=== PATIENT | female | born 1950 | race Caucasian/White ===

== ENCOUNTER 2016-07-10 14:27 | Outpatient (CLI) | payer MEDICARE, OTHER | END 2016-07-10 14:28 | disposition home or self-care (01) | DX: G47.30 Sleep apnea, unspecified (principal); G47.8 Other sleep disorders; G47.10 Hypersomnia, unspecified; R06.83 Snoring; G47.00 Insomnia, unspecified | CPT/HCPCS: 99203; G0463 ==

== ENCOUNTER 2018-02-19 13:04 | Outpatient (CLI) | payer MEDICARE, OTHER ==
--- NOTE | 2018-02-19 15:40 | Ultrasound Report ---
Reason: ABNORMAL LFT'S Procedure Date: 02/19/2018 Accession Number: [id number] / [id number] Procedure: US - Abdomen Limited CPT Code: FULL RESULT: EXAM: ABDOMEN ULTRASOUND LIMITED, RUQ EXAM DATE: 02/19/2018 01:46 PM. CLINICAL HISTORY: Abnormal LFTs. COMPARISON: None. TECHNIQUE: Real-time scanning was performed with static images obtained. FINDINGS: Liver: Liver echotexture is coarse and heterogeneous with geographic areas of increased echogenicity without differential flow on color Doppler. Right lobe of liver measures at least 14.2 cm. Main portal vein flow: Hepatopetal. Gallbladder: Normal. No stones, wall thickening, or sonographic Fay's sign. Biliary System: CBD measures 3 mm. No intrahepatic or extrahepatic ductal dilatation. Other: Right kidney measures up to 9.4 cm and demonstrates no mass or hydronephrosis. IMPRESSION: Markedly heterogeneous coarse echotexture with focal geographic regions of increased echogenicity. This is a nonspecific appearance suggestive of parenchymal disease possibly with focal fatty infiltration. If there is concern for hepatic malignancy, recommend CT with contrast. RADIA
== END 2018-02-19 13:05 | disposition home or self-care (01) ==
LOC: DI 13:04
PROVIDERS: ATTEND Internal Medicine Gastroenterology
DX: R94.5 Abnormal results of liver function studies (principal)
CPT/HCPCS: 76705

== ENCOUNTER 2018-10-09 13:38 | Outpatient (CLI) | payer MEDICARE, OTHER ==
--- NOTE | 2018-10-09 15:47 | CARDIAC PROCEDURE NOTE ---
DATE OF SERVICE: 10/09/2018 Physician: Danay Hernandez MD, [facility] INDICATIONS: Chest pain. CARDIAC RISK FACTORS 1. Advanced age. 2. Unknown history of hypertension. 3. Unknown history of cholesterol. DESCRIPTION OF PROCEDURE: After signing informed consent, patient underwent a Boogie-protocol stress test. No cardiac imaging was ordered with this test. RESTING HEART RATE: 85. PEAK HEART RATE: 132 (86% predicted maximum heart rate for age). RESTING BLOOD PRESSURE: 101/80. PEAK BLOOD PRESSURE: 170/75. Patient exercised for 6 minutes and 25 seconds on a Boogie-protocol treadmill stress test. She achieved a peak heart rate of 132 (86% PMHR) and 7.7 METS. Patient developed marked fatigue, reported her Jean Pierre scale as very difficult and reported moderate shortness of breath. Oxygen saturation was 98% at peak. She had no complaints of chest pain. The treadmill test was stopped because of achieving 85% predicted heart rate, and because of her complaints of significant fatigue and shortness of breath. RESTING EKG: Normal sinus rhythm, LAFB, poor R-wave progression. EKG AT PEAK: No new ST segment or T-wave changes. IMPRESSION 1. Abnormal resting EKG. 2. No ischemic changes at an adequate level of stress achieved on treadmill exercise. 3. Please note: the patient appears to have significant confusion. She did not remember to bring in her med list, did not remember being recently prescribed a thyroid medicine and another new medicine at bedtime and for unknown reason. She did not know her past medical history, and did not comply with the fasting recommendations pre-stress testing (she ate at a restaurant 2 hours prior). The patient also could not adapt to exercising on the treadmill. 4. This patient's coronary risk is LOW based on this exercise stress test, done without imaging. Consider repeat stress test using pharmaceutical stressor agent and nuclear myocardial perfusion imaging, if clinically indicated. TD: 10/09/2018 15:25 ANN
== END 2018-10-09 13:39 | disposition home or self-care (01) ==
LOC: DI 13:38
PROVIDERS: ATTEND Physician Assistant
DX: R07.9 Chest pain, unspecified (principal); R94.31 Abnormal electrocardiogram [ECG] [EKG]
CPT/HCPCS: 93016; 93017; 93018

== ENCOUNTER 2019-01-09 11:36 | Outpatient (CLI) | payer MEDICARE, OTHER ==
[2019-01-09] MEDS ORDERED: SINCALIDE 5 MCG VIAL ONE (13:06)
[2019-01-09] MEDS ORDERED: SINCALIDE 1.2 MCG in SODIUM CHLORIDE 0.9% 50 ML IV ONE (14:57)
--- NOTE | 2019-01-09 17:03 | Nuclear Medicine Report ---
Reason: FATIGUE Procedure Date: 01/09/2019 Accession Number: [id number] / [id number] Procedure: NM - Hepatobiliary HIDA w/ Rx CPT Code: FULL RESULT: EXAM: HEPATOBILIARY SCAN WITH CCK/KINEVAC ADMINISTRATION EXAM DATE: 01/09/2019 02:54 PM. CLINICAL HISTORY: FATIGUE. COMPARISON: ABDOMEN LIMITED 02/19/2018 1:14 PM. TECHNIQUE: Following the intravenous administration of 5.4 mCi of Tc99m Mebrofenin, a hepatobiliary scan was done centered on the liver and gallbladder in multiple sequential images and projections. Following the intravenous administration of 1.2 mcg of CCK/ Kinevac over the course of approximately 60 minutes, dynamic imaging was done and the gallbladder ejection fraction was calculated. FINDINGS: Normal extraction of tracer from the blood pool indicating normal hepatocellular function. The liver size and shape is grossly within normal limits. There is activity visualized within the bile ducts, gallbladder, and small bowel during the first hour. With CCK administration, the gallbladder demonstrates an effective contraction. The gallbladder ejection fraction is calculated to be 85%, well above the lower limit of normal of 38% for a 60-minute injection. The patient did not report symptoms after CCK administration. No evidence of enteric reflux into the stomach. No significant collection of tracer remaining in the common bile duct by the end of the study. IMPRESSION: 1. Patent cystic duct. 2. Patent common bile duct. 3. Negative for acute or chronic cholecystitis. 4. No enterogastric bile reflux. 5. Gallbladder ejection fraction of 85%. RADIA
== END 2019-01-09 11:37 | disposition home or self-care (01) ==
LOC: DI 11:36
PROVIDERS: ATTEND Physician Assistant Medical
DX: R53.83 Other fatigue (principal)
CPT/HCPCS: 78227; J7040

== ENCOUNTER 2019-02-16 17:49 | Emergency (ER) | payer MEDICARE, OTHER ==
[2019-02-16] MEDS ORDERED: MORPHINE 10 MG/ML VIAL IVP STA (17:56)
[2019-02-16] MEDS ORDERED: MORPHINE 10 MG/ML VIAL ONE (17:56)
[2019-02-16] MEDS ORDERED: ONDANSETRON 4 MG/2 ML VIAL ONE (17:56)
[2019-02-16] MEDS ORDERED: ONDANSETRON 4 MG/2 ML VIAL IVP STA (17:56)
--- NOTE | 2019-02-16 17:58 | ED Physician Documentation ---
PD HPI LOWER EXT INJURY - Stated complaint Stated Complaint: LT ANKLE INJURY - Chief complaint Chief Complaint: Ext Problem - History obtained from History obtained from: Patient, Family - History of Present Illness PD HPI LOW EXT INJURY LOCATION: Left (She is out feeding the horses after going to a alliance party where she did some drinking. She slipped in the mud and has an isolated Left ankle injury and she is unable to walk or bear weight.) Review of Systems Ten Systems: 10 systems reviewed and negative Cardiac: reports: Reviewed and negative Respiratory: reports: Reviewed and negative PD PAST MEDICAL HISTORY - Past Surgical History Past Surgical History: Yes HEENT: Tonsil/Adenoidectomy - Present Medications Home Medications: Ambulatory Orders Medication Instructions Recorded Confirmed Levothyroxine [Synthroid] 137 mcg PO DAILY 04/03/15 04/03/15 Hydrocodone/Acetaminophen 1 - 2 each PO Q6H PRN #14 tablet 02/16/19 [Hydrocodon-Acetaminophen 5-325] Knee Scooter 1 unit TD ONCE #1 02/16/19 - Allergies Allergies/Adverse Reactions: Allergies Allergy/AdvReac Type Severity Reaction Status Date / Time No Known Drug Allergies Allergy Verified 02/16/19 17:57 - Social History Does the pt smoke?: No Smoking Status: Never smoker Does the pt drink ETOH?: Yes Does the pt have substance abuse?: No PD ED PE NORMAL - Vitals Vital signs reviewed: Yes - General General: Alert and oriented X 3, Other (She smells of alcohol, slightly histrionic) - HEENT HEENT: PERRL, EOMI - Neck Neck: Supple, no meningeal sign, No bony TTP - Cardiac Cardiac: RRR, No murmur - Respiratory Respiratory: No respiratory distress, Clear bilaterally - Abdomen Abdomen: Normal bowel sounds, Soft, Non tender - Back Back: No CVA TTP, No spinal TTP - Derm Derm: Normal color, Warm and dry - Extremities Extremities: Other (On initial evaluation she has an obviously deformed left ankle, we are unable to get her pants or shoe off on initial evaluation until she has some pain medication.) - Neuro Neuro: Alert and oriented X 3, Normal speech Results - Vitals Vitals: Vital Signs - 24 hr 02/16/19 02/16/19 02/16/19 17:54 18:24 18:37 Temperature 36.6 C Heart Rate 98 95 Respiratory 22 16 18 Rate Blood Pressure 142/125 H 128/109 H 135/83 H O2 Saturation 96 98 100 02/16/19 02/16/19 18:44 19:00 Temperature Heart Rate 87 Respiratory Rate Blood Pressure O2 Saturation 99 100 Oxygen O2 Source Room air - Labs Labs: Laboratory Tests 02/16/19 02/16/19 02/16/19 18:35 18:35 18:35 WBC 6.3 RBC 4.18 L Hgb 14.5 Hct 43.3 MCV 103.6 H MCH 34.7 H MCHC 33.5 RDW 11.9 L Plt Count 259 MPV 9.7 Neut # (Auto) 3.4 Lymph # (Auto) 2.2 [place] # (Auto) 0.5 Eos # (Auto) 0.1 Baso # (Auto) 0.0 Absolute Nucleated RBC 0.00 Nucleated RBC % 0.0 PT 10.8 INR 0.9 Sodium 141 Potassium 3.6 Chloride 106 Carbon Dioxide 24 Anion Gap 11.0 BUN 5 L Creatinine 0.6 Estimated GFR (MDRD) 99 Glucose 104 H Calcium 9.0 Total Bilirubin 0.5 AST 64 H ALT 48 Alkaline Phosphatase 80 Total Protein 6.8 Albumin 3.7 Globulin 3.1 Albumin/Globulin Ratio 1.2 Lipase 52 H Ethyl Alcohol 212.3 - Rads (name of study) LLE XRs Radiology: EMP read contemporaneously Procedures - Splint (location) LLE Splint applied by: Physician Type of splint: Fiberglass, Long leg, Posterior, Stirrup Other: Patient tolerated well, No complications, Neurovascular intact - Reduction Body part reduced: Left, Ankle Fracture or dislocation: Fracture dislocation Anesthesia: Conscious sedation - Procedural sedation Sedation prep: Informed consent, Time out completed Sedation medications: morphine (10mg IVP), ketamine (100mg IVP) Patient status during sedation: Responds to tactile, Maintained airway Sedation recovery: Recovered uneventfully Time in sedation (Minutes): 15 PD MEDICAL DECISION MAKING - ED course ED course: 68-year-old woman attended to immediately upon arrival. She has an obviously deformed ankle, she was administered morphine which did not help much and this was followed by ketamine. After which there was some respiratory depression and the opportunity was taken to reduce the ankle and splint her. Unfortunately there is no orthopedist director distribution here [facility] was called for potential transfer at 6:30 PM. Spoke by phone with Dr. Mikey Nathe, he viewed the x-rays. Feels this can be followed up outpatient. Departure - Departure Disposition: 01 Home, Self Care Clinical Impression: Fall from ground level Trimalleolar fracture of ankle, closed Qualifiers: Encounter type: initial encounter Laterality: left Qualified Code(s): S82.852A - Displaced trimalleolar fracture of left lower leg, initial encounter for closed fracture Alcohol intoxication Qualifiers: Complication of substance-induced condition: uncomplicated Qualified Code(s): F10.920 - Alcohol use, unspecified with intoxication, uncomplicated Condition: Stable Record reviewed to determine appropriate education?: Yes Instructions: ED Splint Care Fiberglass, ED Fx Lower Ext Prescriptions: Hydrocodone/Acetaminophen [Hydrocodon-Acetaminophen 5-325] 1 - 2 each PO Q6H PRN #14 tablet PRN Reason: pain Knee Scooter 1 unit TD ONCE #1 Comments: Do not walk or bear weight on the left leg, keep the splint on and dry. This evening I spoke with Dr. Mikey Quezada, you can follow-up with him. The phone number is [phone]. Keep it elevated as much as possible. Avoid drinking alcohol. You were quite drunk tonight.
[2019-02-16] MEDS ORDERED: KETAMINE 500 MG/10 ML VIAL IVP STA (18:07)
[2019-02-16 18:38] VITALS: BP 135/83
[2019-02-16 18:42] LABS: BASOPHILS % (AUTO) 0.5 %; EOSINOPHILS # (AUTO) 0.1 10^3/uL (0.0-0.7); EOSINOPHILS % (AUTO) 1.9 %; HGB - HEMOGLOBIN 14.5 g/dL (12.0-16.0); LYMPHOCYTES # (AUTO) 2.2 10^3/uL (1.5-3.5); LYMPHOCYTES % (AUTO) 34.4 %; MEAN CORPUSCULAR HEMOGLOBIN 34.7 pg (27.0-31.0); MEAN CORPUSCULAR HGB CONC 33.5 g/dL (32.0-36.0); MEAN CORPUSCULAR VOLUME 103.6 fL (81.0-99.0); MEAN PLATELET VOLUME 9.7 fL (7.9-10.8); MONOCYTES # (AUTO) 0.5 10^3/uL (0.0-1.0); MONOCYTES % (AUTO) 8.3 %; NEUTROPHILS # (AUTO) 3.4 10^3/uL (1.5-6.6); NEUTROPHILS % (AUTO) 54.7 %; PLT - PLATELET COUNT 259 10^3/uL (130-450); RED BLOOD COUNT 4.18 10^6/uL (4.20-5.40); RED CELL DISTRIBUTION WIDTH 11.9 % (12.0-15.0); WHITE BLOOD COUNT 6.3 x10^3/uL (4.8-10.8)
[2019-02-16 18:47] LABS: INR 0.9 (0.8-1.2); PT - PROTHROMBIN TIME 10.8 secs (9.9-12.6)
--- NOTE | 2019-02-16 18:49 | XRAY Report ---
Reason: leg inj Procedure Date: 02/16/2019 Accession Number: [id number] / [id number] Procedure: XR - Ankle 3 View LT CPT Code: Final Report FULL RESULT: EXAM: LEFT ANKLE RADIOGRAPHY EXAM DATE: 02/16/2019 06:32 PM. CLINICAL HISTORY: Slipped feeding horses. Pain and deformity. COMPARISON: None. TECHNIQUE: 3 views. FINDINGS: Bones: Displaced transverse medial malleolar fracture, oblique lateral malleolar fracture, with no other fractures identified. Joints: The tibial and fibular shafts are displaced medially and anteriorly in relation to the talus. Soft Tissues: Associated soft tissue swelling. IMPRESSION: Bimalleolar fracture/dislocation, Yogi GUIDO
--- NOTE | 2019-02-16 18:51 | XRAY Report ---
Reason: leg inj Procedure Date: 02/16/2019 Accession Number: [id number] / [id number] Procedure: XR - Tib/Fib LT CPT Code: Final Report FULL RESULT: EXAM: LEFT TIBIA/FIBULA RADIOGRAPHY EXAM DATE: 02/16/2019 06:32 PM. CLINICAL HISTORY: Post reduction. COMPARISON: Earlier today. TECHNIQUE: 2 views. FINDINGS: Films through cast demonstrate restorationism of the ankle joint, with mildly displaced trimalleolar fractures. No other bony abnormalities. IMPRESSION: Mildly displaced trimalleolar fractures, with improved alignment postreduction, and with restorationism of the ankle mortise. RADIA
[2019-02-16 18:58] LABS: ALBUMIN 3.7 g/dL (3.2-5.5); ALBUMIN/GLOBULIN RATIO 1.2 (1.0-2.2); BILIRUBIN,TOTAL 0.5 mg/dL (0.2-1.0); CREATININE 0.6 mg/dL (0.4-1.0); TOTAL PROTEIN 6.8 g/dL (6.7-8.2)
--- NOTE | 2019-02-16 18:59 | XRAY Report ---
Reason: ankle fracture, post reduction Procedure Date: 02/16/2019 Accession Number: [id number] / [id number] Procedure: XR - Ankle 2 View LT CPT Code: Final Report FULL RESULT: EXAM: LEFT ANKLE RADIOGRAPHY EXAM DATE: 02/16/2019 06:34 PM. CLINICAL HISTORY: Ankle fracture, post reduction. COMPARISON: ANKLE 3 VIEW LT 02/16/2019 5:53 PM. TECHNIQUE: 1 views. FINDINGS: There is interval reduction of the fracture dislocation involving the left ankle. On this single AP view, distal fibular fracture is subtle as well as medial malleolus fracture. Cast limits fine detail. There is normal alignment at the ankle mortise. IMPRESSION: Interval reduction in fracture dislocation at the left ankle. RADIA
[2019-02-16] MEDS ORDERED: HYDROcod/ACET 5/325 Prepack 4 PO STA (19:22)
== END 2019-02-16 19:59 | disposition home or self-care (01) ==
LOC: ED 17:49
DX: S82.852A Displaced trimalleolar fracture of left lower leg, initial encounter for closed fracture (principal); W01.0XXA Fall on same level from slipping, tripping and stumbling without subsequent striking against object, initial encounter; Y93.K9 Activity, other involving animal care; F10.920 Alcohol use, unspecified with intoxication, uncomplicated
CPT/HCPCS: 27818; 36415; 80053; 80320; 83690; 85025; 85610; 99152; 99283; 99284

== ENCOUNTER 2019-07-23 07:00 | Outpatient (CLI) | payer MEDICARE, OTHER | END 2019-07-23 23:59 | disposition home or self-care (01) | LOC: LAB.WCP 07:00 | PROVIDERS: ATTEND Physician Assistant Medical | DX: E03.9 Hypothyroidism, unspecified (principal) | CPT/HCPCS: 36415; 84443 ==

== ENCOUNTER 2021-05-24 11:29 | Outpatient (CLI) | payer MEDICARE, OTHER ==
--- NOTE | 2021-05-25 07:03 | Mammography Report ---
BILATERAL DIGITAL SCREENING MAMMOGRAM 3D/2D: 05/24/2021 CLINICAL: Routine screening. Comparison is made to exams dated: 10/14/2015 mammogram and 05/10/2011 mammogram - [facility]. The tissue of both breasts is predominantly fatty. There are benign calcifications in the left breast. No significant masses, calcifications, or other findings are seen in either breast. There has been no significant interval change. IMPRESSION: BENIGN There is no mammographic evidence of malignancy. A 1 year screening mammogram is recommended. This exam was interpreted at Station ID: [id number]. NOTE: For mammograms, a report in lay terms will be sent to the patient. Approximately 15% of breast malignancies will not be visualized mammographically. In the management of a palpable breast mass, a negative mammogram must not discourage biopsy of a clinically suspicious lesion. Electronically Signed By: Rex San acr/penrad:05/24/2021 12:45:53 ACR BI-RADS Category 2: Benign Finding(s) 3342F PARENCHYMAL PATTERN: (F) - The breast(s) demonstrate(s) diffuse fatty replacement. BI-RADS CATEGORY: (2) - 2 RECOMMENDATION: (ANNUAL) - Recommend routine annual screening mammography. [id number] 1 year screening LATERALITY: (B)
== END 2021-05-24 11:30 | disposition home or self-care (01) ==
LOC: DI.N 11:29
DX: Z12.31 Encounter for screening mammogram for malignant neoplasm of breast (principal)

== ENCOUNTER 2021-07-28 08:00 | Outpatient (CLI) | payer MEDICARE, OTHER ==
[2021-07-28 17:57] LABS: ALBUMIN/GLOBULIN RATIO 1.5 (1.0-2.2); BILIRUBIN,TOTAL 1.1 mg/dL (0.2-1.0); CALCIUM 9.4 mg/dL (8.5-10.3); CREATININE 0.5 mg/dL (0.4-1.0); TOTAL PROTEIN 6.7 g/dL (6.7-8.2)
[2021-07-28 17:59] LABS: BASOPHILS % (AUTO) 0.7 %; EOSINOPHILS # (AUTO) 0.1 10^3/uL (0.0-0.7); EOSINOPHILS % (AUTO) 1.8 %; HGB - HEMOGLOBIN 15.9 g/dL (12.0-16.0); LYMPHOCYTES # (AUTO) 1.2 10^3/uL (1.5-3.5); LYMPHOCYTES % (AUTO) 27.5 %; MEAN CORPUSCULAR HEMOGLOBIN 36.5 pg (27.0-31.0); MEAN CORPUSCULAR HGB CONC 34.6 g/dL (32.0-36.0); MEAN CORPUSCULAR VOLUME 105.5 fL (81.0-99.0); MEAN PLATELET VOLUME 10.3 fL (7.9-10.8); MONOCYTES # (AUTO) 0.4 10^3/uL (0.0-1.0); MONOCYTES % (AUTO) 9.6 %; NEUTROPHILS # (AUTO) 2.6 10^3/uL (1.5-6.6); NEUTROPHILS % (AUTO) 59.9 %; PLT - PLATELET COUNT 224 10^3/uL (130-450); RED BLOOD COUNT 4.36 10^6/uL (4.20-5.40); RED CELL DISTRIBUTION WIDTH 12.2 % (12.0-15.0); WHITE BLOOD COUNT 4.4 x10^3/uL (4.8-10.8)
[2021-07-28 18:11] LABS: THYROID STIMULATING HORMONE 9.79 uIU/mL (0.34-5.60)
[2021-07-28 18:45] LABS: FREE T4 (FREE THYROXINE) 0.57 ng/dL (0.58-1.64)
[2021-07-28 21:08] LABS: ESTIMATED AVERAGE GLUCOSE 100 mg/dL (70-100); HEMOGLOBIN A1c% 5.1 % (4.27-6.07)
== END 2021-07-28 08:01 | disposition home or self-care (01) ==
LOC: LAB.N 08:00
PROVIDERS: ATTEND Registered Nurse
DX: R68.89 Other general symptoms and signs (principal)
CPT/HCPCS: 36415; 80053; 83036; 84439; 84443; 85025

== ENCOUNTER 2022-04-12 08:00 | Outpatient (CLI) | payer MEDICARE, OTHER ==
[2022-04-12 18:05] LABS: BASOPHILS % (AUTO) 0.5 %; EOSINOPHILS % (AUTO) 0.5 %; HCT - HEMATOCRIT 49.8 % (37.0-47.0); HGB - HEMOGLOBIN 17.3 g/dL (12.0-16.0); LYMPHOCYTES # (AUTO) 0.9 10^3/uL (1.5-3.5); LYMPHOCYTES % (AUTO) 14.9 %; MEAN CORPUSCULAR HEMOGLOBIN 37.4 pg (27.0-31.0); MEAN CORPUSCULAR HGB CONC 34.7 g/dL (32.0-36.0); MEAN CORPUSCULAR VOLUME 107.8 fL (81.0-99.0); MEAN PLATELET VOLUME 11.2 fL (7.9-10.8); MONOCYTES # (AUTO) 0.7 10^3/uL (0.0-1.0); MONOCYTES % (AUTO) 11.8 %; NEUTROPHILS # (AUTO) 4.2 10^3/uL (1.5-6.6); NEUTROPHILS % (AUTO) 71.8 %; PLT - PLATELET COUNT 262 10^3/uL (130-450); RED BLOOD COUNT 4.62 10^6/uL (4.20-5.40); WHITE BLOOD COUNT 5.8 x10^3/uL (4.8-10.8)
[2022-04-12 18:18] LABS: ALBUMIN 3.5 g/dL (3.2-5.5); ALBUMIN/GLOBULIN RATIO 1.1 (1.0-2.2); BILIRUBIN,TOTAL 1.5 mg/dL (0.2-1.0); CALCIUM 9.8 mg/dL (8.5-10.3); CREATININE 0.6 mg/dL (0.4-1.0); POTASSIUM 3.7 mmol/L (3.5-5.0); TOTAL PROTEIN 6.6 g/dL (6.7-8.2)
[2022-04-12 18:31] LABS: THYROID STIMULATING HORMONE 12.58 uIU/mL (0.34-5.60)
[2022-04-12 19:52] LABS: FREE T4 (FREE THYROXINE) 0.66 ng/dL (0.58-1.64)
== END 2022-04-12 23:59 | disposition home or self-care (01) ==
LOC: LAB.N 08:00
PROVIDERS: ATTEND Nurse Practitioner Family
DX: E03.9 Hypothyroidism, unspecified (principal); R68.89 Other general symptoms and signs
CPT/HCPCS: 36415; 80053; 84439; 84443; 85025

== ENCOUNTER 2022-06-09 10:59 | Outpatient (CLI) | payer MEDICARE, OTHER ==
[2022-06-09 17:46] LABS: BASOPHILS % (AUTO) 0.6 %; EOSINOPHILS # (AUTO) 0.1 10^3/uL (0.0-0.7); EOSINOPHILS % (AUTO) 2.6 %; HCT - HEMATOCRIT 45.1 % (37.0-47.0); HGB - HEMOGLOBIN 15.7 g/dL (12.0-16.0); LYMPHOCYTES # (AUTO) 1.1 10^3/uL (1.5-3.5); LYMPHOCYTES % (AUTO) 22.2 %; MEAN CORPUSCULAR HEMOGLOBIN 37.2 pg (27.0-31.0); MEAN CORPUSCULAR HGB CONC 34.8 g/dL (32.0-36.0); MEAN CORPUSCULAR VOLUME 106.9 fL (81.0-99.0); MEAN PLATELET VOLUME 11.3 fL (7.9-10.8); MONOCYTES # (AUTO) 0.5 10^3/uL (0.0-1.0); MONOCYTES % (AUTO) 10.2 %; NEUTROPHILS # (AUTO) 3.1 10^3/uL (1.5-6.6); NEUTROPHILS % (AUTO) 63.2 %; PLT - PLATELET COUNT 226 10^3/uL (130-450); RED BLOOD COUNT 4.22 10^6/uL (4.20-5.40); RED CELL DISTRIBUTION WIDTH 12.6 % (12.0-15.0); WHITE BLOOD COUNT 4.9 x10^3/uL (4.8-10.8)
[2022-06-09 18:02] LABS: THYROID STIMULATING HORMONE 10.28 uIU/mL (0.34-5.60)
[2022-06-09 18:04] LABS: ALBUMIN 3.3 g/dL (3.2-5.5); ALBUMIN/GLOBULIN RATIO 1.1 (1.0-2.2); ALKALINE PHOSPHATASE 112 IU/L (42-121); ALT ALANINE AMINOTRANSFERASE 68 IU/L (10-60); AST ASPARTATE AMINOTRANSFERASE 107 IU/L (10-42); BILIRUBIN,TOTAL 1.2 mg/dL (0.2-1.0); BUN - BLOOD UREA NITROGEN < 5 mg/dL (6-20); CALCIUM 9.5 mg/dL (8.5-10.3); CARBON DIOXIDE - CO2 25 mmol/L (21-32); CHLORIDE 102 mmol/L (101-111); CREATININE 0.6 mg/dL (0.4-1.0); GAMMA GLUTAMYL TRANSPEPTIDASE 222 IU/L (8-38); GFR - MDRD 98 (>89); GLUCOSE 82 mg/dL (70-100); POTASSIUM 3.5 mmol/L (3.5-5.0); SODIUM 140 mmol/L (135-145); TOTAL PROTEIN 6.3 g/dL (6.7-8.2)
[2022-06-09 18:33] LABS: INR 0.9 (0.8-1.2); PT - PROTHROMBIN TIME 10.6 secs (9.9-12.6)
[2022-06-09 18:45] LABS: FREE T4 (FREE THYROXINE) 0.71 ng/dL (0.58-1.64)
[2022-06-10 08:09] LABS: HBsAG SCREEN Negative (Negative)
[2022-06-12 07:08] LABS: HCV AB Non Reactive (Non Reactive)
== END 2022-06-09 11:00 | disposition home or self-care (01) ==
LOC: LAB.N 10:59
PROVIDERS: ATTEND Nurse Practitioner Family
DX: R79.89 Other specified abnormal findings of blood chemistry (principal); E03.9 Hypothyroidism, unspecified; F10.90 Alcohol use, unspecified, uncomplicated
CPT/HCPCS: 36415; 80053; 82977; 84439; 84443; 85025; 85610; 86704; 86803; 87340

== ENCOUNTER 2022-07-11 14:26 | Outpatient (CLI) | payer MEDICARE, OTHER ==
--- NOTE | 2022-07-11 17:03 | Ultrasound Report ---
PROCEDURE: Abdomen Complete INDICATIONS: ABN LIVER FUNCTIONS TECHNIQUE: Real-time scanning was performed of the abdominal and retroperitoneal organs, with image documentatio n. COMPARISON: None. FINDINGS: Liver: Liver is normal in size. Increased liver parenchymal echotexture is seen, no discrete hepatic lesion. Gallbladder: Unremarkable. Biliary ducts: Intrahepatic bile ducts are non-dilated. Extrahepatic bile duct caliber measures 6.2 mm. Normal is 6-7 mm or less in diameter, or 10 mm or less post-cholecystectomy. Pancreas: Hypoechoic area is noted involving body of pancreas measures approximately 1.8 x 0.9 x 1.2 cm in size. No gross internal vascularity is seen. Spleen: Spleen is normal in size and homogeneous in echotexture. Kidneys: Kidneys are normal in size and echotexture. Right kidney measures 9.8 cm long; left kidney measures 9.8 cm long. No hydronephrosis or nephrolithiasis. Left parapelvic renal cysts are seen an d measures up to 1.4 x 0.9 x 0.8 cm in size. No solid masses. No complex renal cystic lesions which r equire follow-up. Aorta: Visualized aorta is normal in caliber at less than 3 cm. Iliacs: Proximal common iliac arteries are normal in caliber at less than 2.5 cm. IVC: Intrahepatic inferior vena cava is patent. Miscellaneous: No free abdominal fluid. IMPRESSION: 1. Hepatic steatosis, no discrete hepatic lesion. 2. Ill-defined hypoechoic area involving body of pancreas and measures 1.8 x 0.9 x 1.2 cm in size. Fi nding could represent IPMN. Neoplastic process of pancreas cannot be excluded. This can be further ev aluated with dedicated MRI of abdomen without and with contrast. 3. No biliary ductal dilatation. Normal-appearing gallbladder. 4. Left peripelvic renal cysts as above. No hydronephrosis. Reviewed by: Ridge Carlton MD on 07/11/2022 5:01 PM PDT Approved by: Ridge Carlton MD on 07/11/2022 5:01 PM PDT Station ID: [id number]
== END 2022-07-11 14:27 | disposition home or self-care (01) ==
LOC: DI 14:26
PROVIDERS: ATTEND Family Medicine
DX: R94.5 Abnormal results of liver function studies (principal); K76.0 Fatty (change of) liver, not elsewhere classified; R93.5 Abnormal findings on diagnostic imaging of other abdominal regions, including retroperitoneum; N28.1 Cyst of kidney, acquired

== ENCOUNTER 2022-07-22 08:52 | Outpatient (CLI) | payer MEDICARE, OTHER ==
[~2022-07-22 08:52] MED LIST: GADOBUTROL 7.5 MMOL/7.5 ML VIAL ONE
[2022-07-22 09:12] LABS: CREATININE 0.5 mg/dL (0.4-1.0)
[2022-07-22] MEDS ORDERED: GADOBUTROL 7.5 MMOL/7.5 ML VIAL IVP ONE (11:10)
--- NOTE | 2022-07-24 09:17 | MRI Report ---
PROCEDURE: ABDOMEN W/WO INDICATIONS: MASS OF PANCREAS CONTRAST: GADAVIST 5.1 ML TECHNIQUE: Coronal ultra fast SE, axial 2D spoiled GE in- and [id number]; axial breath-hold T2 fast SE. Dynam ic axial ultra fast GE during the administration of contrast; post-contrast coronal ultra fast GE or 2D spoiled GE with fat saturation from the hepatic dome to the iliac crests. Optional diffusion weig hted imaging and ADC may be performed. COMPARISON: Ultrasound 07/11/2022 FINDINGS: Image quality: Excellent. Lung bases: No basal pleural effusions. Heart size is normal. Solid organs: Clinically significant hepatic steatosis (14% calculated). Along the posterior margin o f the right hepatic lobe, there are a few T2 hyperintense cystic lesions without suspicious features, most consistent with benign cysts. Additionally, there is a focus of microhemorrhage with rim enhanc ement measuring 9 mm in segment 7 (series 11, image 31). Gallbladder sludge without wall thickening. No adrenal nodules. Spleen is within normal limits. No solid renal masses or hydronephrosis. Relative ly homogeneous T1 hyperintense signal throughout the pancreatic parenchyma. No pancreatic ductal dila tion. No persistent mass. Nodes and vessels: No retroperitoneal or mesenteric adenopathy by size criteria. Aorta and inferior vena cava are normal in size. Bowel and peritoneum: Unenhanced bowel loops are normal in caliber. No free fluid. Bones and soft tissues: No ventral hernias. Bone marrow is normal in overall signal. IMPRESSION: Clinically significant hepatic steatosis, which may place this patient at risk for developing hepatic fibrosis. No definite pancreatic mass. The pancreatic duct dilation. See follow-up recommendations below. Focus of microhemorrhage in segment 7 of the liver, probably representing a sequela of prior trauma. Presence of rim enhancement can also indicate malignancy. Consider 3-6 month follow-up with MRI. Reviewed by: Richie Gilbert on 07/24/2022 9:15 AM PDT Approved by: Richie Gilbert on 07/24/2022 9:15 AM PDT Station ID: [id number]
== END 2022-07-22 08:53 | disposition home or self-care (01) ==
LOC: LAB 08:52
PROVIDERS: ATTEND Family Medicine
DX: K86.89 Other specified diseases of pancreas (principal); K76.0 Fatty (change of) liver, not elsewhere classified; K76.89 Other specified diseases of liver
CPT/HCPCS: 36415; 74183; 82565; A9585

== ENCOUNTER 2022-08-24 09:33 | Outpatient (CLI) | payer MEDICARE, OTHER ==
--- NOTE | 2022-08-24 11:51 | XRAY Report ---
PROCEDURE: Lumbar Spine Complete INDICATIONS: LUMBAGO TECHNIQUE: 5 views of the lumbar spine were acquired. COMPARISON: None. FINDINGS: Bones: 5 [id number] vertebrae are present. There is levocurvature of the upper lumbar spine. N o acute vertebral body compression fractures. Severe multilevel lumbar spondylosis with moderate deg enerative endplate changes, disc height loss, and prominent endplate osteophytes. Moderate lumbar fac et arthropathy most pronounced in the mid and lower lumbar spine. No suspicious bony lesions. No fin dings to suggest pars defects. Soft tissues: Overlying bowel gas pattern is normal. No suspicious soft tissue calcifications. IMPRESSION: Lumbar spine without acute fracture. Severe multilevel lumbar spondylosis. Reviewed by: Contreras Gibbons MD on 08/24/2022 11:50 AM PDT Approved by: Contreras Gibbons MD on 08/24/2022 11:50 AM PDT Station ID: [id number]
--- NOTE | 2022-08-24 11:53 | XRAY Report ---
PROCEDURE: Pelvis 3 View INDICATIONS: LOOKING FOR DETAIL R ILIUM/ ILIAC CREST PAIN TECHNIQUE: 3 view(s) of the pelvis acquired. COMPARISON: Lumbar spine from earlier same day. FINDINGS: Bones: No fractures or dislocations. No suspicious bony lesions. Visualized iliac bones appear unre markable bilaterally. Severe lower lumbar spondylosis. Mild degenerative changes of the bilateral hip s. Chronic ossification noted over the superolateral right acetabular rim. Soft tissues: Visualized bowel gas pattern is normal. No suspicious soft tissue calcifications. IMPRESSION: No acute bony abnormality. Severe lower lumbar spondylosis. Mild bilateral degenerative change more pronounced on the right. Reviewed by: Contreras Gibbons MD on 08/24/2022 11:51 AM PDT Approved by: Contreras Gibbons MD on 08/24/2022 11:51 AM PDT Station ID: [id number]
--- NOTE | 2022-08-24 11:54 | XRAY Report ---
PROCEDURE: Sacrum/Coccyx INDICATIONS: LUMBAGO TECHNIQUE: 3 views of the sacrum and coccyx acquired. COMPARISON: Lumbar spine and pelvic series from earlier same day FINDINGS: Bones: No acute fractures or dislocations. No suspicious bony lesions. Lower lumbar spondylosis. B ilateral hip degenerative change. Soft tissues: Visualized bowel gas pattern is normal. No suspicious soft tissue densities. IMPRESSION: Sacrum/coccyx without acute osseous abnormalities. Lower lumbar spondylosis and bilateral hip degenerative change. Reviewed by: Contreras Gibbons MD on 08/24/2022 11:52 AM PDT Approved by: Contreras Gibbons MD on 08/24/2022 11:52 AM PDT Station ID: [id number]
== END 2022-08-24 09:34 | disposition home or self-care (01) ==
LOC: DI.N 09:33
PROVIDERS: ATTEND Nurse Practitioner Family
DX: M47.816 Spondylosis without myelopathy or radiculopathy, lumbar region (principal); M16.0 Bilateral primary osteoarthritis of hip

== ENCOUNTER 2022-09-21 15:31 | Outpatient (CLI) | payer MEDICARE, OTHER ==
[2022-09-21 15:58] LABS: CREATININE 0.4 mg/dL (0.4-1.0)
[2022-09-21] MEDS ORDERED: GADOBUTROL 7.5 MMOL/7.5 ML VIAL IVP ONE (18:43)
--- NOTE | 2022-09-22 09:54 | MRI Report ---
PROCEDURE: ABDOMEN W/WO INDICATIONS: MASS OF PANCREAS CONTRAST: GADAVIST 4.9 ML TECHNIQUE: Coronal ultra fast SE, axial 2D spoiled GE in- and [id number]; axial breath-hold T2 fast SE. Dynam ic axial ultra fast GE during the administration of contrast; post-contrast coronal ultra fast GE or 2D spoiled GE with fat saturation from the hepatic dome to the iliac crests. Optional diffusion weig hted imaging and ADC may be performed. COMPARISON: 07/11/2022, 07/22/2022 FINDINGS: Image quality: Good Lower chest: No pleural effusions. Lungs are not well evaluated. Normal heart size. Solid organs: Significant steatosis of the liver. Stable right low posterior capsular T2 hyperintense focus with accumulating contrast on multiple phas es. More superiorly, there are also small areas of T2 hyperintense foci, with surrounding accumulatin g contrast (07/13, 07/19, , ). Hepatic arterial buffering response is seen to some right posterior portal narrowing in this region, most obvious on series 17. This is more obvious than on prior imaging. No pathologic biliary ductal dilation. The gallbladder appears unremarkable. No pathologic pancreatic ductal dilation. No splenomegaly. No adrenal nodules. No hydronephrosis. Vessels and lymph nodes: No abdominal aortic aneurysm. Prominent upper abdominal lymph nodes may be r eactive to chronic liver disease, attention on follow-up. These were also seen previously. Bowel and peritoneum: No bowel obstruction. No pathologic ascites. At the pancreaticoduodenal groove, there is a multilobulated cystic lesion dominant component measuri ng 2.6 x 1.5 cm (07/20), previously 1.6 x 1.3 cm. Body wall: Unremarkable Bones: No acute or suspicious osseous finding. IMPRESSION: No solid intraparenchymal mass identified in the pancreas. No pathologic pancreatic ductal dilation. At the pancreatic duodenal groove, slightly increased size of a exophytic cystic lesion versus duoden al diverticulum. At the right posterior margin of the liver, there are fibrotic changes and small cystic lesions. Incr eased conspicuity of adjacent right posterior portal venous narrowing and arterial buffering phenomen on, often seen as a response to parenchymal fibrotic or desmoplastic changes. 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 Consider further evaluation with ERCP/EUS/sampling versus repeat MR follow-up in 3-6 months. Reference images: series 4, images 13 and 19 Series 21 images 26 and 39 Series 4 image 20 Significant hepatic steatosis. Reviewed by: Prakash Hill MD on 09/22/2022 9:53 AM PDT Approved by: Prakash Hill MD on 09/22/2022 9:53 AM PDT Station ID: [id number]
== END 2022-09-21 15:32 | disposition home or self-care (01) ==
LOC: LAB 15:31
PROVIDERS: ATTEND Family Medicine
DX: K86.9 Disease of pancreas, unspecified (principal); K76.89 Other specified diseases of liver
CPT/HCPCS: 36415; 74183; 82565; A9585

== ENCOUNTER 2023-02-28 10:49 | Outpatient (CLI) | payer MEDICARE, OTHER ==
[2023-02-28 19:06] LABS: THYROID STIMULATING HORMONE 14.83 uIU/mL (0.34-5.60)
== END 2023-02-28 10:50 | disposition home or self-care (01) ==
LOC: LAB.N 10:49
PROVIDERS: ATTEND Nurse Practitioner Family
DX: E03.9 Hypothyroidism, unspecified (principal); K86.89 Other specified diseases of pancreas; R74.8 Abnormal levels of other serum enzymes; R79.89 Other specified abnormal findings of blood chemistry
CPT/HCPCS: 36415; 80053; 84439; 84443